=== PATIENT | male | born 1960 | race Native Hawaiian/Other Pacific Islander ===

== ENCOUNTER 2023-01-19 12:18 | Outpatient (CLI) | payer OTHER ==
[2023-01-19 13:06] LABS: PLATELET COUNT 255 K/uL (142-355)
== END 2023-01-19 19:06 ==
LOC: LABW 12:18
PROVIDERS: ATTEND Nurse Practitioner Family
DX: C44.319 Basal cell carcinoma of skin of other parts of face (principal)
CPT/HCPCS: 36415; 80053; 82550; 85027